=== PATIENT | male | born 1945 | race Native Hawaiian/Other Pacific Islander ===

== ENCOUNTER 2018-06-23 12:39 | Outpatient (CLI) | payer OTHER ==
[~2018-06-23 12:39] MED LIST: LEVO-T88 MCG PO
== END 2018-06-23 20:15 | disposition home or self-care (01) ==
LOC: RAD 12:39
DX: J38.3 Other diseases of vocal cords (principal); K13.79 Other lesions of oral mucosa; T17.998A Other foreign object in respiratory tract, part unspecified causing other injury, initial encounter

== ENCOUNTER 2019-06-12 09:40 | Outpatient (CLI) | payer OTHER ==
[2019-06-12 10:06] LABS: PLATELET COUNT 360 K/uL (142-355)
[2019-06-12 10:14] LABS: POTASSIUM 4.4 mmol/L (3.6-5.2)
== END 2019-06-12 20:22 | disposition home or self-care (01) ==
LOC: LABW 09:40
PROVIDERS: Internal Medicine
DX: E03.8 Other specified hypothyroidism (principal); I25.10 Atherosclerotic heart disease of native coronary artery without angina pectoris
CPT/HCPCS: 36415; 80053; 80061; 84439; 84443; 85027

== ENCOUNTER 2020-01-02 15:54 | Emergency (ER) | payer OTHER ==
[~2020-01-02] VITALS: Ht 182.9 cm; Wt 95.3 kg
[2020-01-02 16:14] VITALS: BP 119/78; TEMP 96.8
== END 2020-01-02 17:30 | disposition home or self-care (01) ==
LOC: ED 15:54
DX: S42.035A Nondisplaced fracture of lateral end of left clavicle, initial encounter for closed fracture (principal); W18.39XA Other fall on same level, initial encounter; Y92.410 Unspecified street and highway as the place of occurrence of the external cause
CPT/HCPCS: 99282

== ENCOUNTER 2020-02-29 03:35 | Emergency (ER) | payer OTHER | END 2020-02-29 04:21 | disposition home or self-care (01) | LOC: ED 03:35 | DX: S42.002A Fracture of unspecified part of left clavicle, initial encounter for closed fracture (principal); W18.39XA Other fall on same level, initial encounter; Y93.89 Activity, other specified; Y92.89 Other specified places as the place of occurrence of the external cause | CPT/HCPCS: 99281 ==

== ENCOUNTER 2023-04-07 15:07 | Outpatient (CLI) | payer OTHER ==
[~2023-04-07 15:07] MED LIST changes: +904272561 PO; +NP THYROID120 MG PO; +TAMS0.4C PO; +TESTOST CYP200 MG/ML IM
== END 2023-04-07 21:23 | disposition home or self-care (01) ==
LOC: RAD 15:07
PROVIDERS: ATTEND Orthopaedic Surgery
DX: M25.512 Pain in left shoulder (principal)